=== PATIENT | male | born 1975 | race Caucasian/White ===

== ENCOUNTER 2020-07-03 06:42 | Outpatient (CLI) | payer OTHER ==
[2020-07-03 12:05] LABS: #Basophils 0.1 10x3/uL (0.0-0.2); #Eosinphils 0.2 10x3/uL (0.0-0.5); #Monocytes 0.8 10x3/uL (0.0-1.1); #Neutrophils 3.9 10x3/uL (1.5-8.4); %Basophils 0.9 % (0.0-2.0); %Eosinophils 2.3 % (0.0-6.0); %Lymphocytes 34.1 % (18.0-47.0); %Monocytes 10.4 % (0.0-10.0); Hemoglobin 14.1 g/dL (14.0-18.0); Mean Corpuscular HGB CONC 32.8 G/DL (32.0-36.0); Mean Corpuscular Hemoglobin 26.7 PG (27.0-33.0); Mean Corpuscular Volume 81.3 fl (80.0-100.0); Mean Platelet Volume 9.1 fl (7.4-10.4); Platelet Count 305 10x3/uL (130-400); RBC Distribution Width 14.8 % (11.5-14.5); Red Blood Cell (RBC) Count 5.29 10x6/uL (4.40-5.80); White Blood Cell (WBC) Count 7.5 10x3/uL (4.5-11.0)
[2020-07-03 22:45] LABS: SARS-CoV-2 MS2 Positive; SARS-CoV-2 N Gene Negative; SARS-CoV-2 S Gene Negative; SARS-CoV-2 by NAA Not Detected (NotDetected); SARS-CoV-2 orf1ab Negative
== END 2020-07-03 06:43 | disposition home or self-care (01) ==
LOC: LABBT 06:42
PROVIDERS: ATTEND Orthopaedic Surgery
DX: Z01.812 Encounter for preprocedural laboratory examination (principal); S46.211A Strain of muscle, fascia and tendon of other parts of biceps, right arm, initial encounter; Z20.828 Contact with and (suspected) exposure to other viral communicable diseases
CPT/HCPCS: 85025; 87635; U0003

== ENCOUNTER 2020-07-09 06:35 | Day surgery (SDC) | payer OTHER ==
[2020-07-08 11:22] VITALS: BMI 37.3
[2020-07-09] MEDS ORDERED: Midazolam HCl 2 mg/2 ml Vial ONE (07:32)
[2020-07-09] MEDS ORDERED: Fentanyl 100 MCG/2 ML VIAL ONE ×2 (07:32→09:01)
[2020-07-09] MEDS ORDERED: Lidocaine 1% (PF) 30 ML VIAL ONE (07:32)
[2020-07-09] MEDS ORDERED: Fentanyl 100 MCG/2 ML VIAL IV PRN (09:18)
[2020-07-09] MEDS ORDERED: traMADol HCl 50 MG TAB PO PRN ×2 (09:30)
[2020-07-09] MEDS ORDERED: Zolpidem Tartrate 5 MG TAB PO PRN (09:30)
[2020-07-09] MEDS ORDERED: Ropivacaine 0.2% 550 ML 550 ML NERVE BLCK SCH (09:30)
[2020-07-09] MEDS ORDERED: Promethazine HCl 25 MG/ML VIAL IM PRN (09:30)
[2020-07-09] MEDS ORDERED: Ondansetron PF 4 MG/2 ML Vial IVP PRN (09:30)
[2020-07-09] MEDS ORDERED: HYDROcodone/Acetaminophen 10/325 mg Tablet PO PRN ×2 (09:30)
[2020-07-09] MEDS ORDERED: Dexamethasone 20 MG/5 ML VIAL ONE (10:00)
[2020-07-09] MEDS ORDERED: PROPOFOL 200 MG/20 ML VIAL ONE (10:00)
[2020-07-09] MEDS ORDERED: Ondansetron PF 4 MG/2 ML Vial ONE (10:00)
[2020-07-09] MEDS ORDERED: Lidocaine 1% PF 5 ML VIAL ONE (10:00)
--- NOTE | 2020-07-09 10:26 | RAD ---
XR Elbow Rt 2 View History: Biceps tendon repair Comparison: None. Findings: 2 spot fluoroscopic images were obtained. Endobutton repair of the biceps tendon. Impression: Fluoroscopy for procedure purposes.
[2020-07-09] MEDS ORDERED: Ropivacaine 0.5% HCl/PF (150 MG/30 ML VIAL) ONE (10:39)
[2020-07-09] MEDS ORDERED: Ropivacaine 0.2% HCl/PF (40 MG/20 ML VIAL) ONE (10:39)
--- NOTE | 2020-07-09 12:56 | OP ---
DATE OF PROCEDURE: 07/09/2020 PREOPERATIVE DIAGNOSIS: Right distal biceps rupture. POSTOPERATIVE DIAGNOSIS: Right distal biceps rupture. PROCEDURE PERFORMED: Right distal biceps reinsertion/repair. STAFF SURGEON: Ricki Hairston MD HISTOPATHOLOGY TECHNICIAN: Jai Arevalo PA-C. ANESTHESIA: Dr. Contreras. The patient received LMA with supraclavicular catheter. ESTIMATED BLOOD LOSS: Less than 20 mL. TOURNIQUET TIME: 45 minutes. ANTIBIOTICS: Ancef 2 g. IMPLANTS: [employer] Tight[employer] Bio-Ten[employer] screw set. COMPLICATIONS: None. HISTORY OF PRESENT ILLNESS: Mr. Santos is a 45-year-old male who ruptured his right biceps by picking up a keg. The patient was seen in my office. I discussed risks and benefits of surgery to include pain, scar, bleeding, infection, damage to vital structures, decreased range of motion and strength, continued pain despite repair,retear , potential failure of procedure, and loss of life or limb. They understood the risks and benefits and elected to proceed. DESCRIPTION OF PROCEDURE: Time-out was performed designating the patient's right upper extremity as the operative site based on site, consents, and marking. After time-out, the patient's right upper extremity was prepped and draped in sterile fashion. I made an incision over the skin. I bluntly dissected down, digitally palpated out the patient's distal biceps. I found the remnant of the sheath as it passed toward the radial tuberosity. We were able to create a tunnel along the biceps sheath and distally split between the brachioradialis and the pronator. We came down onto the greater tuberosity, developed off some of the remnant insertion, cleaned off the tuberosity using a retractor laterally. [employer]Wheaton and a Hohmann medially to expose the tuberosity. I went back to the patient's distal biceps, cut it to length, measured about 7.5. We used a whipstitch with the FiberLoop passing through 5 passes through and passing out the end. We then created our insertion hole , went back to our tuberosity, ensured we had exposed the tuberosity the patient hyper-supinated, drilled unicortically. After we cleaned out the side, we then passed through the tunnel and through the biceps sheath/tunnel, passed into the hole, pulled the biceps into place. We moved the suture limbs back up, pulled and ensured at about 90 degrees, passed the suture into the patient's biceps tendon and tied into place, ensured that we had good fixation. Overall pleased with the placement. Cut the limbs. We washed; I went back, ensured that he came to about 45 degrees of extension where it was taught. We washed; we closed with 0, 2-0, and nylon. Tourniquet was let down at 45 minutes. At the completion of this, patient was placed in a bulky dressing. He will be discharged home with pain medications. My dermatology physician assistant helped me with the exposure, retraction, isolation of biceps, running of stitch, placement of hole, reaming, drilling, placement of the biceps, sewing, repair, and closure. The patient will be discharged today. Job ID: [id number] [facility]
== END 2020-07-09 12:50 | disposition home or self-care (01) ==
LOC: SDC 06:35
PROVIDERS: ATTEND Orthopaedic Surgery
PROC: 3E0T3BZ Introduction of Anesthetic Agent into Peripheral Nerves and Plexi, Percutaneous Approach (ICD-10-PCS; principal; 2020-07-09)
PROC: 0LM30ZZ Reattachment of Right Upper Arm Tendon, Open Approach (ICD-10-PCS; principal; 2020-07-09)
DX: S46.211A Strain of muscle, fascia and tendon of other parts of biceps, right arm, initial encounter (principal); G89.18 Other acute postprocedural pain; I10 Essential (primary) hypertension; N52.9 Male erectile dysfunction, unspecified; E11.9 Type 2 diabetes mellitus without complications; F17.290 Nicotine dependence, other tobacco product, uncomplicated; Z79.899 Other long term (current) drug therapy; X50.0XXA Overexertion from strenuous movement or load, initial encounter
CPT/HCPCS: 76000; A4306; C1713; J0690; J1100; J2001; J2250; J2405; J2704; J2795; J3010

== ENCOUNTER 2021-05-19 10:11 | Outpatient (CLI) | payer BC | END 2021-05-19 10:12 | disposition home or self-care (01) | LOC: ULT 10:11 | PROVIDERS: ATTEND Physician Assistant Medical | DX: R74.8 Abnormal levels of other serum enzymes (principal); K76.0 Fatty (change of) liver, not elsewhere classified | CPT/HCPCS: 76705 ==